=== PATIENT | male | born 1960 | race American Indian/Alaskan Native ===

== ENCOUNTER 2016-09-18 17:06 | Emergency (ER) | payer MEDICAID, OTHER ==
[2016-09-18 17:06] VITALS: BMI 26.8
[2016-09-18 18:25] LABS: BASO # 0.1 K/uL (0.0-0.2); BASO % 1.5 % (0.0-2.0); EOS # 0.3 K/uL (0.0-0.7); HEMATOCRIT 41.8 % (35.0-51.0); LYMPH # 3.2 K/uL (1.0-4.3); LYMPH % 40.5 % (20.0-40.0); MEAN CELL VOLUME 88.2 fL (80.0-94.0); MEAN CORPUSCULAR HEMOGLOBIN 28.6 pg (27.0-31.0); MEAN CORPUSCULAR HGB CONC 32.4 g/dL (33.0-37.0); MEAN PLATELET VOLUME 8.4 fL (7.2-11.7); MONO % 12.7 % (0.0-10.0); NRBC % 0.1 % (0.0-2.0); RED CELL DISTRIBUTION WIDTH 14.9 % (11.5-14.5); WHITE BLOOD COUNT 7.9 K/uL (4.8-10.8)
[2016-09-18 18:33] LABS: CHLORIDE 101 mmol/L (98-107); SODIUM 139 mmol/L (132-148)
[2016-09-18 18:34] LABS: POTASSIUM 3.5 mmol/L (3.6-5.2)
[2016-09-18 18:36] LABS: ALB/GLOB RATIO 1.1 (1.0-2.1); ALKALINE PHOSPHATASE 105 U/L (38-126); ALT/SGPT 17 U/L (21-72); AST/SGOT 28 U/L (17-59); BILIRUBIN,TOTAL 0.8 mg/dL (0.2-1.3); BLOOD UREA NITROGEN 10 mg/dL (9-20); CALCIUM 9.3 mg/dl (8.6-10.4); CARBON DIOXIDE 27 mmol/L (22-30); GFR AFRICAN-AMERICAN > 60; GLUCOSE,RANDOM 79 mg/dL (75-110); TOTAL PROTEIN 8.3 g/dL (6.3-8.3)
[2016-09-18 18:37] LABS: ALCOHOL SERUM < 10 mg/dl (0-10)
[2016-09-18 18:44] LABS: RBC URINE 2 /hpf (0-3); URINE BACTERIA RARE (<OCC); URINE BILIRUBIN NEGATIVE (NEGATIVE); URINE BLOOD NEGATIVE (NEGATIVE); URINE COLOR Yellow (YELLOW); URINE GLUCOSE (UA) NORMAL (Normal); URINE KETONE TRACE mg/dL (NEGATIVE); URINE LEUKOCYTE ESTERASE NEG Leu/uL (Negative); URINE PROTEIN NEGATIVE (NEGATIVE); URINE UROBILINOGEN NORMAL mg/dL (0.2-1.0); WBC URINE < 1 /hpf (0-5)
--- NOTE | 2016-09-18 19:07 | C.PDOC ---
History Of Present Illness <Donna Beard - Last Filed: 09/18/16 19:21> <Wilmer Heard - Last Filed: 09/18/16 19:33> Patient c/o suicidal ideations and auditory hallucinations. Patient sts he was trying to walk into traffic today. (Donna Beard) History Per: Patient History/Exam Limitations: no limitations Current Symptoms Are (Timing): Still Present Modifying Factor(s): Narcotics Severity: Moderate Associated Symptoms: Anxiety, Depression, Suicidal Thoughts, Suicidal Plan <Donna Beard - Last Filed: 09/18/16 19:21> <Wilmer Heard - Last Filed: 09/18/16 19:33> Time Seen by Provider: 09/18/16 17:54 Chief Complaint (Nursing): Psychiatric Evaluation Past Medical History Reviewed: Historical Data, Nursing Documentation, Vital Signs - Medical History PMH: Asthma, Bipolar Disorder, Depression, Diabetes (IDDM), Hepatitis Denies: HIV, HTN, Chronic Kidney Disease, Seizures, Sexually Transmitted Disease Family History: States: Unknown Family Hx - Social History Hx Tobacco Use: Yes Hx Alcohol Use: Yes (beer liquor) Hx Substance Use: Yes - Immunization History Hx Tetanus Toxoid Vaccination: No Hx Influenza Vaccination: No Hx Pneumococcal Vaccination: No <Donna Beard - Last Filed: 09/18/16 19:21> Review Of Systems Except As Marked, All Systems Reviewed And Found Negative. <Donna Beard - Last Filed: 09/18/16 19:21> Physical Exam - Physical Exam Appears: Well, Non-toxic, No Acute Distress Skin: Normal Color Head: Atraumatic, Normacephalic Eye(s): bilateral: Normal Inspection Chest: Symmetrical, No Tenderness Respiratory: Normal Breath Sounds Gastrointestinal/Abdominal: Normal Exam Extremity: Normal ROM, No Tenderness Neurological/Psych: Oriented x3, Normal Speech, Normal Cognition <Donna Beard - Last Filed: 09/18/16 19:21> ED Course And Treatment - Laboratory Results Result Diagrams: 09/18/16 18:20 09/18/16 18:20 O2 Sat by Pulse Oximetry: 98 Progress Note: At 7 pm case was signed out to . Awaiting EKG and CXR and needs to be medically cleared for psych admission. <Donna Beard - Last Filed: 09/18/16 19:21> - Laboratory Results Result Diagrams: 09/18/16 18:20 09/18/16 18:20 ECG: Interpreted By Me, Viewed By Me ECG Rhythm: Sinus Rhythm (72), Nonspecific Changes Pulse Ox Interpretation: Normal - Radiology CXR: Interpreted by Me, Viewed By Me CXR Interpretation: No: Infiltrates, Fracture, Pnemothorax Progress Note: Pt medically cleared for transfer to [facility] <Wilmer Heard - Last Filed: 09/18/16 19:33> Disposition - Disposition Disposition Time: 19:09 <Donna Beard - Last Filed: 09/18/16 19:21> <Wilmer Heard - Last Filed: 09/18/16 19:33> - Disposition Condition: STABLE - Clinical Impression Clinical Impression: Suicidal ideations, Depression, Polysubstance dependence Physician Patient Turnover Patient Signed Over To: Wilmer Heard Handoff Comments: EKG, medical clearance and psych admission <Donna Beard - Last Filed: 09/18/16 19:21>
[2016-09-18 22:14] VITALS: BP 130/70; PULSE 70; RESP 14; TEMP 97.8; O2SAT 97
--- NOTE | 2016-09-19 08:36 | RAD ---
PROCEDURE: CHEST RADIOGRAPH, 1 VIEW HISTORY: Detox/Psy COMPARISON: None available. FINDINGS: LUNGS: Clear. PLEURA: No pneumothorax or pleural fluid seen. CARDIOVASCULAR: Normal. OSSEOUS STRUCTURES: No significant abnormalities. VISUALIZED UPPER ABDOMEN: Normal. OTHER FINDINGS: None. IMPRESSION: No active disease.
--- NOTE | 2016-09-21 14:26 | CARD ---
APPROVED REPORT EKG Measurement Heart [id number] <Conclusion> Normal sinus rhythm Normal ECG
== END 2016-09-19 00:47 | disposition short-term general hospital (02) ==
LOC: C.ER 17:06
DX: R45.851 Suicidal ideations (principal); F32.9 Major depressive disorder, single episode, unspecified; F19.20 Other psychoactive substance dependence, uncomplicated